=== PATIENT | female | born 1985 | race Caucasian/White ===

== ENCOUNTER 2018-12-04 05:44 | Inpatient (IN) | payer OTHER ==
[~2018-12-04] VITALS: Ht 162.6 cm; Wt 82.7 kg
[2018-12-04 05:53] VITALS: Ht 162.6 cm; Wt 82.7 kg
[2018-12-04 06:28] VITALS: BP 110/66; PULSE 82; RESP 18
--- NOTE | 2018-12-04 07:48 | HP ---
Date/Time of Note Date/Time of Note DATE: 12/04/18 TIME: 07:47 OB - History Hx of Present Free Text/Dictation @39+wks GA with variable decels and in early labor : 1 Para: 0 Care: Good Care Ultrasounds: Normal mid trimester US Obstetrical Complications: None Medical Complications: None Past Family/Social History * Past Medical, Surgical, Family and Obstetric Histories reviewed from chart. OB Admission Exam Vital Signs Vital Signs Vital Signs Date Temp Pulse Resp B/P (MAP) Pulse Ox O2 O2 Flow FiO2 Time Delivery Rate 12/04/18 98.1 82 18 110/66 98 Room Air 06:28 (81) Physical Exam Abdomen: WNL Reflexes: Normal Cervical Dilatation: 1cm Effacement: 50% Station: -1 Membranes: Intact Heart Rate: 140's Accelerations: Accelerations Present Decelerations: Variable Decelerations Varibility: Moderate Contractions on Admission: 6-10 Minutes Apart OB Assessment/Plan Reason for admission: observation Other Assessment: PMH Denies PSH Denies Plan: Expectant Management CORBIN GARCIA M.D. December 04, 2018 07:48
[2018-12-04] MEDS ORDERED: IBUPROFEN 600 MG TAB PO PRN (08:00)
[2018-12-04] MEDS ORDERED: MISOPROSTOL 200 MCG TAB PR PRN ×2 (08:00→23:30)
[2018-12-04] MEDS ORDERED: METHYLERGONOVINE 0.2 MG INJ IM PRN ×2 (08:00→23:30)
[2018-12-04] MEDS ORDERED: OXYCODONE/ACETAMINOPHEN (5/325) TAB PO PRN ×2 (08:00→23:30)
[2018-12-04] MEDS ORDERED: OXYTOCIN 30 UNITS/LR 500 ML IV PRN ×2 (08:00→23:30)
[2018-12-04] MEDS ORDERED: BUTORPHANOL 2 MG INJ IV PRN (08:00)
[2018-12-04] MEDS ORDERED: OXYTOCIN 30 UNITS/LR 500 ML IV SCH ×4 (08:00→23:15)
[2018-12-04] MEDS ORDERED: LIDOCAINE 1% (MPF) 30 ML INJ INJ PRN (08:00)
[2018-12-04] MEDS ORDERED: CARBOPROST 250 MCG INJ IM PRN ×2 (08:00→23:30)
[2018-12-04] MEDS: LACTATED RINGER'S 1,000 ML IV SCH ×5 (10:07→20:37)
[2018-12-04] MEDS ORDERED: MISOPROSTOL 50 MCG CAPSULE PO PRN (10:30)
--- NOTE | 2018-12-04 13:06 | PREAC ---
Date/Time of Note Date/Time of Note DATE: 12/04/18 TIME: 13:05 Anesthesia Eval and Record Evaluation Time Pre-Procedure Interview DATE: 12/04/18 TIME: 13:05 Age 33 Sex female NPO: 8 hrs Preoperative diagnosis labor pain Planned procedure epidural Past Medical History Past Medical History: Includes : Gestational age: (38.6) Surgery & Anesthesia Issues No known issue Meds Anticoagulation: No Beta Jose within 24 hr: No Reason Beta Jose not given: Pt. not on B-Jose Current Medications Lactated Ringer's 1,000 ml @ 125 mls/hr Q8H IV Last administered on 12/04/18at 12:50; Admin Dose 125 MLS/HR; Start 12/04/18 at 07:58 Butorphanol Tartrate (Stadol) 2 mg Q2H PRN IV .PAIN SCALE 6-10; Start 12/04/18 at 08:00 Lidocaine (Xylocaine 1% (Mpf)) 30 ml ONCE PRN INJ .EPISIOTOMY; Start 12/04/18 at 08:00 Oxytocin/Lactated Ringer's 500 ml @ 500 mls/hr ONCE POST IV ; Start 12/04/18 at 08:00 Oxytocin/Lactated Ringer's 500 ml @ 125 mls/hr POST IV ; Start 12/04/18 at 08:00 Ibuprofen (Motrin) 600 mg ONCE PRN PO .PAIN 1-5; Start 12/04/18 at 08:00 Oxycodone/ Acetaminophen (Percocet (5/ 325)) 2 tab ONCE PRN PO .PAIN 6-10; Start 12/04/18 at 08:00 Oxytocin/Lactated Ringer's 500 ml @ 0 mls/hr ONCE PRN IV .VAGINAL BLEEDING; Start 12/04/18 at 08:00 Methylergonovine Maleate (Methergine) 0.2 mg ONCE PRN IM .VAGINAL BLEEDING; Start 12/04/18 at 08:00 Carboprost Tromethamine (Hemabate) 250 mcg ONCE PRN IM .VAGINAL BLEEDING; Start 12/04/18 at 08:00 Misoprostol (Cytotec) 1,000 mcg ONCE PRN HI .VAGINAL BLEEDING; Start 12/04/18 at 08:00 Misoprostol (Cytotec 50 Mcg Capsule) 50 mcg Q4 PRN PO LABOR INDUCTION Last administered on 12/04/18at 10:31; Admin Dose 50 MCG; Start 12/04/18 at 10:30 Meds reviewed: Yes Allergies Coded Allergies: No Known Allergy (Unverified , 12/04/18) Allergies Reviewed: Yes Labs/Studies Labs Reviewed: Reviewed by anesthesiologist Result Diagram: 12/04/18 0808 Laboratory Tests 12/04/18 08:08 Blood Bank Test 12/04/18 08:08 Antibody Screen NEGATIVE Blood Type A POSITIVE Rh Immune Globulin Candidate NO test: Positive Studies: ECG (n/a), CXR (n/a) Pre-procedure Exam Last vitals Vital Signs Date Temp Pulse Resp B/P (MAP) Pulse Ox O2 O2 Flow FiO2 Time Delivery Rate 12/04/18 98.1 82 18 110/66 98 Room Air 06:28 (81) Airway: Adequate mouth opening Mallampati: Mallampati I Teeth: Normal Lung: Normal Heart: Normal ASA Physical Status ASA physical status: 2 Emergency: None Planned Anesthetic Neuraxial: Epidural Planned Pain Management Epidural Pre-operative Attestations Prior to commencing anesthesia and surgery, the patient was re-evaluated, there was verification of: *The patient's identity *The results of appropriate recent lab work and preoperative vital signs *The above evaluation not changing prior to induction *Anesthetic plan, risk benefits, alternative and complications discussed with patient/family; questions answered; patient/family understands, accepts and wishes to proceed. MAGDIEL TOLEDO MD December 04, 2018 13:06
[2018-12-04] MEDS ORDERED: DIPHENHYDRAMINE 50 MG INJ IV PRN (13:30)
[2018-12-04] MEDS ORDERED: NALOXONE (0.4 MG/ML) INJ IV PRN (13:30)
[2018-12-04] MEDS ORDERED: ONDANSETRON 4 MG INJ IV PRN (13:30)
[2018-12-04] MEDS ORDERED: FENTAnyl 2MCG/ML-ROPIV 0.2% 100 ML BAG EPI SCH (13:30)
--- NOTE | 2018-12-04 18:20 | QN ---
Documentation Comment progress note patient seen and evaluated vs stable ab gravid, nt extremity no edema no calf tenderness ve 6/80/0 fhr cat 1 toco regular a/ iup at term in labor p/ continue present management consider pitocin as needed anticipate vaginal delivery TREVOR DOWLING MD December 04, 2018 18:20
[2018-12-04] MEDS ORDERED: METHYLERGONOVINE 0.2 MG INJ ONE (20:00)
[2018-12-04] MEDS ORDERED: CEFAZOLIN 2 GM/50 ML (PMX) 50 ML IVPB SCH ×2 (22:00→23:30)
[2018-12-04] MEDS ORDERED: CITRIC ACID/NA CITRATE 30 ML CUP PO ONE (22:00)
[2018-12-04] MEDS ORDERED: CEFAZOLIN 2 GM/50 ML (PMX) 50 ML IVPB ONE (22:02)
[2018-12-04] MEDS ORDERED: CITRIC ACID/NA CITRATE 30 ML CUP ONE (22:02)
--- NOTE | 2018-12-04 22:11 | PREAC ---
Date/Time of Note Date/Time of Note DATE: 12/04/18 TIME: 22:10 Anesthesia Eval and Record Evaluation Time Pre-Procedure Interview DATE: 12/04/18 TIME: 22:10 Age 33 Sex female NPO: 8 hrs Preoperative diagnosis Tachy FHR Planned procedure c secttion Past Medical History Past Medical History: Includes : Gestational age: (38.6) Surgery & Anesthesia Issues No known issue Meds Anticoagulation: No Beta Jose within 24 hr: No Reason Beta Jose not given: Pt. not on B-Jose Current Medications Lactated Ringer's 1,000 ml @ 125 mls/hr Q8H IV Last administered on 12/04/18at 20:37; Admin Dose 125 MLS/HR; Start 12/04/18 at 07:58 Butorphanol Tartrate (Stadol) 2 mg Q2H PRN IV .PAIN SCALE 6-10; Start 12/04/18 at 08:00 Lidocaine (Xylocaine 1% (Mpf)) 30 ml ONCE PRN INJ .EPISIOTOMY; Start 12/04/18 at 08:00 Oxytocin/Lactated Ringer's 500 ml @ 500 mls/hr ONCE POST IV ; Start 12/04/18 at 08:00 Oxytocin/Lactated Ringer's 500 ml @ 125 mls/hr POST IV ; Start 12/04/18 at 08:00 Ibuprofen (Motrin) 600 mg ONCE PRN PO .PAIN 1-5; Start 12/04/18 at 08:00 Oxycodone/ Acetaminophen (Percocet (5/ 325)) 2 tab ONCE PRN PO .PAIN 6-10; Start 12/04/18 at 08:00 Oxytocin/Lactated Ringer's 500 ml @ 0 mls/hr ONCE PRN IV .VAGINAL BLEEDING; Start 12/04/18 at 08:00 Methylergonovine Maleate (Methergine) 0.2 mg ONCE PRN IM .VAGINAL BLEEDING; Start 12/04/18 at 08:00 Carboprost Tromethamine (Hemabate) 250 mcg ONCE PRN IM .VAGINAL BLEEDING; Start 12/04/18 at 08:00 Misoprostol (Cytotec) 1,000 mcg ONCE PRN AL .VAGINAL BLEEDING; Start 12/04/18 at 08:00 Misoprostol (Cytotec 50 Mcg Capsule) 50 mcg Q4 PRN PO LABOR INDUCTION Last administered on 12/04/18at 10:31; Admin Dose 50 MCG; Start 12/04/18 at 10:30 Diphenhydramine HCl (Benadryl) 25 mg Q4H PRN IV .PRURITUS; Start 12/04/18 at 13:30 Ondansetron HCl (Zofran Inj) 4 mg Q6H PRN IV .NAUSEA/VOMITING; Start 12/04/18 at 13:30 Naloxone HCl (Narcan) 0.2 mg Q2M PRN IV .RESP RATE; Start 12/04/18 at 13:30 Fentanyl/ Ropivacaine 100 ml EPIDURAL (PCEA) EPI ; Start 12/04/18 at 13:30 Oxytocin/Lactated Ringer's 500 ml @ 0 mls/hr Q0M IV ; Start 12/04/18 at 15:00 Cefazolin Sodium/ Dextrose 50 ml @ 100 mls/hr ONCE IVPB ; Start 12/04/18 at 22:00; Status UNV Citric Acid/ Sodium Citrate (Bicitra) 30 ml ONCE ONCE PO ; Start 12/04/18 at 22:00; Stop 12/04/18 at 22:01; Status UNV Meds reviewed: Yes Allergies Coded Allergies: No Known Allergy (Unverified , 12/04/18) Allergies Reviewed: Yes Labs/Studies Labs Reviewed: Reviewed by anesthesiologist Result Diagram: 12/04/18 0808 Laboratory Tests 12/04/18 08:08 Blood Bank Test 12/04/18 08:08 Antibody Screen NEGATIVE Blood Type A POSITIVE Rh Immune Globulin Candidate NO test: Positive Studies: ECG (n/a), CXR (n/a) Pre-procedure Exam Last vitals Vital Signs Date Temp Pulse Resp B/P (MAP) Pulse Ox O2 O2 Flow FiO2 Time Delivery Rate 12/04/18 98.1 82 18 110/66 98 Room Air 06:28 (81) Airway: Adequate mouth opening Mallampati: Mallampati I Teeth: Normal Lung: Normal Heart: Normal ASA Physical Status ASA physical status: 2 Emergency: E Planned Anesthetic Neuraxial: Epidural Planned Pain Management Epidural Pre-operative Attestations Prior to commencing anesthesia and surgery, the patient was re-evaluated, there was verification of: *The patient's identity *The results of appropriate recent lab work and preoperative vital signs *The above evaluation not changing prior to induction *Anesthetic plan, risk benefits, alternative and complications discussed with patient/family; questions answered; patient/family understands, accepts and wishes to proceed. MAGDIEL TOLEDO MD December 04, 2018 22:11
[2018-12-04] MEDS ORDERED: LIDOCAINE 1.5%/EPI MPF (SDV) 30 ML VIAL ONE (22:13)
--- NOTE | 2018-12-04 22:14 | HPN ---
Date/Time of Note Date/Time of Note DATE: 12/04/18 TIME: 22:13 Interval H&P Admission Note Pt. seen H&P reviewed: Systems changes noted below iup at 39 wks ga, in labor, persistent cat 2 tracing, remote from delivery TREVOR DOWLING MD December 04, 2018 22:13
[2018-12-04] MEDS ORDERED: METOCLOPRAMIDE 10 MG INJ ONE (22:19)
[2018-12-04] MEDS ORDERED: KETOROLAC 30 MG INJ ONE (22:25)
[2018-12-04] MEDS ORDERED: morphine SULFATE/PF (10 MG/10 ML) INJ ONE (22:53)
[2018-12-04] MEDS ORDERED: OXYTOCIN 30 UNITS/LR 500 ML IV ONE (22:58)
--- NOTE | 2018-12-04 23:14 | OPPN ---
Date/Time of Note Date/Time of Note DATE: 12/04/18 TIME: 23:11 Operative Report Planned Procedure Procedure date December 04, 2018 Procedure(s) primary low transverse CD Performed by see signature line Director Of Analytical Development: FRANCA LOTT 2nd Director Of Analytical Development none Anesthesiologist: MAGDIEL TOLEDO MD Pre-procedure diagnosis iup at 39 wks ga, in labor, persistent cat 2 tracing, remote from delivery [id number] Anesthesia Type: [id number] epidural Post-Procedure Post-procedure diagnosis same Findings A viable male, 8/9, weight 7lbs 10oz. loose cord around neck x 1. normal uterus, tubes and ovaries. Estimated Blood Loss: 500 - 600 mls (500) Specimen(s) none Grafts/Implant(s) none Complication(s) none TREVOR DOWLING MD December 04, 2018 23:14
[2018-12-04] MEDS ORDERED: LANOLIN HPA 1 PKT TOP PRN (23:30)
[2018-12-04] MEDS ORDERED: NACL 0.9% 3 ML SYG IV SCH (23:30)
[2018-12-05] MEDS ORDERED: IBUPROFEN 600 MG TAB PO SCH
[2018-12-05 02:05] VITALS: BP 120/72; PULSE 59; RESP 18
[2018-12-05] MEDS: LACTATED RINGER'S 1,000 ML IV SCH ×3 (05:30→19:00)
[2018-12-05] MEDS: CEFAZOLIN 2 GM/50 ML (PMX) 50 ML IVPB SCH ×3 (05:58→21:50)
[2018-12-05 06:09] VITALS: BP 109/67; PULSE 61; RESP 19
--- NOTE | 2018-12-05 07:54 | PAC ---
Date/Time of Note Date/Time of Note DATE: 12/05/18 TIME: 07:54 Post-Anesthesia Notes Post-Anesthesia Note Last documented vital signs Vital Signs Date Temp Pulse Resp B/P (MAP) Pulse Ox O2 O2 Flow FiO2 Time Delivery Rate 12/05/18 98.3 61 19 109/67 95 Room Air 06:09 (81) Activity: WNL Respiratory function: WNL Cardiovascular function: WNL Mental status: Baseline Pain reasonably controlled: Yes Hydration appropriate: Yes Nausea/Vomiting absent: No MAGDIEL TOLEDO MD December 05, 2018 07:54
--- NOTE | 2018-12-05 07:56 | OPPN ---
Date/Time of Note Date/Time of Note DATE: 12/05/18 TIME: 07:54 Anesthesia Follow up Anesthesia Follow up Last documented vital signs Vital Signs Date Temp Pulse Resp B/P (MAP) Pulse Ox O2 O2 Flow FiO2 Time Delivery Rate 12/05/18 98.3 61 19 109/67 95 Room Air 06:09 (81) Respiratory function: WNL Cardiovascular function: WNL Comments A 33 year female s/p spinal with duramorph form post op pain POD#1 is fine. No pain, headache, N/V, itching. no neural deficit. care per surgery team MAGDIEL TOLEDO MD December 05, 2018 07:56
--- NOTE | 2018-12-05 07:57 | PAC ---
Date/Time of Note Date/Time of Note DATE: 12/05/18 TIME: 07:56 Post-Anesthesia Notes Post-Anesthesia Note Last documented vital signs Vital Signs Date Temp Pulse Resp B/P (MAP) Pulse Ox O2 O2 Flow FiO2 Time Delivery Rate 12/05/18 98.3 61 19 109/67 95 Room Air 06:09 (81) Activity: WNL Respiratory function: WNL Cardiovascular function: WNL Mental status: Baseline Pain reasonably controlled: Yes Hydration appropriate: Yes Nausea/Vomiting absent: No MAGDIEL TOLEDO MD December 05, 2018 07:57
[2018-12-05 08:15] VITALS: BP 109/69; PULSE 68; RESP 17
[2018-12-05 12:00] VITALS: BP 107/67; PULSE 77; RESP 18
[2018-12-05] MEDS: KETOROLAC 30 MG INJ IV PRN ×2 (12:46→21:49)
[2018-12-05 16:09] VITALS: BP 107/68; PULSE 65; RESP 18
--- NOTE | 2018-12-05 18:11 | QN ---
Documentation Comment progress note pod 1 patient was seen and evaluated no complaints vs stable afebrile ab dressing clean/dry no distention extremity no edema no calf tenderness a/ sp cd with btl pod 1 stable afebrile p/ encourage ambulation iron supplement TREVOR DOWLING MD December 05, 2018 18:11
--- NOTE | 2018-12-05 18:47 | OPR ---
DATE OF OPERATION: 12/04/2018 PRIMARY DIAGNOSES: Intrauterine at 39 weeks gestational age in labor, persistent category 2 tracing remote from delivery. POSTOPERATIVE DIAGNOSES: Intrauterine at 39 weeks gestational age in labor, persistent cat egory 2 tracing remote from delivery. OPERATION PERFORMED: Primary low transverse delivery via Pfannenstiel incision. SURGEON: Ty Treadwell MD RUBBER TRIMMER: Javi Toussaint MD ANESTHESIA: Epidural. COMPLICATIONS: None. ESTIMATED BLOOD LOSS: 500 mL. FINDINGS: A viable male, 8 and 9 respectively at 1 and 5 minutes, weight 7 pounds and 10 ounce s, loose cord around the neck x1; normal uterus, tubes and ovaries. DESCRIPTION OF PROCEDURE: After explaining the risks, benefits and alternatives, the patient and con sent signed in chart, the patient was taken to the operating room where epidural anesthesia was found to be adequate. She was then prepared and draped in normal sterile fashion in dorsal supine positio n with a leftward tilt. A Pfannenstiel skin incision was then made with a scalpel and carried to the underlying fascia. The fascia was incised in midline. Incision was extended laterally with Martin sc issors. The superior aspect of the fascial incision was grasped with Yamil clamps, elevated and the underlying rectus muscles were dissected off bluntly. Attention was then turned to the inferior asp ect incision which in similar fashion was grasped with curved clamps, elevated and the rectus muscles were dissected off bluntly. The rectus muscle was in midline, peritoneum identified, tent ed up and entered sharply with Metzenbaum scissors. The peritoneal incision was extended superiorly with good visualization of the bladder. The bladder blade was then inserted and all lower uterine se gment was incised in transverse fashion with the scalpel. The uterine incision was extended laterall y. The bladder blade was removed and the 's head was delivered atraumatically. The nose and m outh were suctioned and cord was clamped and cut. The infant was handed off to awaiting assisted living care manager . The placenta was then removed. The uterus was extracted of all clots and debris. The uterine inc ision was repaired with 1-0 chromic in a running locked fashion. Second layer of same suture was use d for imbrication obtaining excellent hemostasis. The uterus was returned to the abdomen. The gutte rs were cleared of all clots. The peritoneum and rectus abdominis muscles were reapproximated with 3 -0 Vicryl in interrupted fashion. The fascia was reapproximated with 0 Vicryl in a running fashion. The subcutaneous tissue was reapproximated with 2-0 plain gut in a running fashion. The skin was cl osed with absorbable shoaib. The patient tolerated procedure well. All counts were correct x2. Th e patient was taken to recovery room in stable condition. Dictated By: TY LÓPEZ/ALLAN Conf#: [id number] DID#: [id number]
[2018-12-05 20:00] VITALS: BP 120/64; PULSE 78; RESP 20
[2018-12-05] MEDS: FERROUS SULFATE (EC) 325 MG TAB PO SCH (21:49)
[2018-12-06] MEDS: OXYCODONE/ACETAMINOPHEN (5/325) TAB PO PRN ×5 (01:37→23:53)
[2018-12-06] MEDS: LACTATED RINGER'S 1,000 ML IV SCH (03:00)
[2018-12-06 04:42] VITALS: BP 107/62; PULSE 70; RESP 20
[2018-12-06 08:00] VITALS: BP 114/72; PULSE 67; RESP 18
[2018-12-06] MEDS: FERROUS SULFATE (EC) 325 MG TAB PO SCH ×2 (09:25→21:40)
[2018-12-06 15:40] VITALS: BP 92/57; PULSE 77; RESP 18
--- NOTE | 2018-12-06 17:14 | PD.PPDC ---
ADMINISTRATIVE PROCESSOR Discharge Instruction Condition [id number] Patient Condition: [id number] Good Diet Ievca5Zv Diet: Hlooe5v Resume Regular Diet Activity/Restrictions Sfgfx5Wx Activity: Ihpjl7r Normal Activity May Shower Cebjz4Lj Restrictions: Fhyxm2y No Exercising No Lifting No Driving No Sexual Activity Nothing in the Vagina No [place] No Tampons, douche Wound/Drain Care Instructions [id number] Wound/Drain Care Instructions: Krman3i Wash with soap and water Keep clean and dry Follow-up Follow-up with Physician: 2, Week/Weeks Return to clinic for Edqvs9Ov FORENSIC PSYCHOLOGIST Instructions: Gxuww1f Fever greater than 101 Chills Worsening abdominal pain Excessive Vaginal Bleeding More than 2 pads per hour Unable to tolerate diet Tzwsu2Az OB Instructions: Ewtzy1m Breast Tenderness Depression Blurried Vision Headache Zuodk8Ht Surgical Instructions: Gomyw5r Incisional Drainage Incisional Redness TREVOR DOWLING MD December 06, 2018 17:14
--- NOTE | 2018-12-06 17:16 | QN ---
Documentation Comment progress note pod 2 patient was seen and evaluated no complaints vs stable afebrile ab dressing clean/dry no distention extremity no edema no calf tenderness a/ sp cd with btl pod 2 stable afebrile p/ encourage ambulation iron supplement dc tomorrow TREVOR DOWLING MD December 06, 2018 17:16
[2018-12-06 21:00] VITALS: BP 116/63; PULSE 87; RESP 20
[2018-12-07 04:07] VITALS: BP 105/56; PULSE 86; RESP 18
--- NOTE | 2018-12-07 07:40 | DS ---
DATE OF ADMISSION: 12/04/2018 DATE OF DISCHARGE: 12/06/2018 PRIMARY DIAGNOSIS: Intrauterine at 39 weeks gestational age in labor, persistent category 2 tracing, remote from delivery. PROCEDURE: Primary low transverse delivery. CONDITION ON DISCHARGE: Stable. ACTIVITY: None per vagina, no lifting x6 weeks. DIET: Regular. MEDICATIONS ON DISCHARGE: 1. Motrin. 2. Iron. 3. Colace. DISCHARGE SUMMARY: Ms. Breanne Polo underwent a primary low transverse delivery on 2018. She had a viable male, 8 and 9 respectively at 1 and 5 minutes, weight 7 pounds 10 ounce s. She had an uneventful postop day 1, 2, and 3. She was discharged on postop day 3. Her incision is clean, dry, and intact. She is ambulating, tolerating diet, positive bowel movement. She will fo llow up in the clinic in 2 weeks for /postop care. Dictated By: TREVOR LÓPEZ/ALLAN Conf#: [id number] DID#: [id number]
[2018-12-07 08:00] VITALS: BP 106/62; PULSE 85; RESP 18
[2018-12-07] MEDS: IBUPROFEN 600 MG TAB PO SCH ×2 (08:49→12:00)
[2018-12-07] MEDS: FERROUS SULFATE (EC) 325 MG TAB PO SCH (08:49)
--- NOTE | 2018-12-08 16:13 | DELSUM ---
Delivery Summary A-C Datetime Report Generated by CPN: 12/08/2018 16:13 DELIVERY PERSONNEL Chicken Cleaner: Guerline Amador MATERNAL INFORMATION Delivery Anesthesia: Epidural Medications in Delivery: SEE ANESTHESIA RECORD Delivery QBL (ml): 500 Placenta Cultured: No Maternal Complications: None LABOR SUMMARY EDC: 12/06/2018 00:00 No. Babies in Womb: 1 Attempted: No Labor Anesthesia: Epidural LABOR INFORMATION Reason for Induction: Indicated by Test Onset of Labor: 12/04/2018 16:30 Cervical Ripening Agents: Cytotec @ Oxytocin: N/A Group B Beta Strep: Negative Antibiotics # of Doses: X1 ANCEF 2G Antibiotics Time of Last Dose: 12/04/2018 22:22 Steroids Given: None Reason Steroids Not Administered: Not Applicable MEMBRANES Membranes Rupture Method: Spontaneous Rupture of Membranes: 12/04/2018 16:30 Length of Rupture (hr): 6.23 Amniotic Fluid Color: Clear Amniotic Fluid Amount: Scant Amniotic Fluid Odor: None STAGES OF LABOR Stage 3 hr: 0 Stage 3 min: 2 Total Time in Labor hr: 6 Total Time in Labor min: 16 VAGINAL DELIVERY Initial Vag Sponge Count: 10 Initial Vag Sharps Count: 1 CSECTION DELIVERY Primary Indication: Nonreassuring Stat Secondary Indication: N/A CSection Urgency: Emergency CSection Incidence: Primary Labor: Labor Elective: Nonelective CSection Incision: Lower Uterine Transverse BABY A INFORMATION Infant Delivery Date/Time: 12/04/2018 22:44 Method of Delivery: Born in Route : No : N/A Forceps: N/A Vacuum Extraction: N/A Shoulder Dystocia : N/A SHOULDER DYSTOCIA BABY A Delivery Date/Time: 12/04/2018 22:44 PRESENTATION/POSITION BABY A Presentation: Cephalic Cephalic Presentation: Vertex Vertex Position: Left Occipital Posterior Breech Presentation: N/A PLACENTA INFORMATION BABY A Placenta Delivery Time : 12/04/2018 22:46 Placenta Method of Delivery: Expressed Placenta Status: Delivered SCORES BABY A Heart Rate 1 min: >100 bpm Resp Effort 1 min: Good Cry Reflex Irritability 1 min: Cough/Sneeze/Pulls Away Muscle Tone 1 min: Active Motion Color 1 min: Blue/Pale Resuscitation Effort 1 min: Tactile Stimulation; Oxygen SCORE 1 MIN: 8 Heart Rate 5 min: >100 bpm Resp Effort 5 min: Good Cry Reflex Irritability 5 min: Cough/Sneeze/Pulls Away Muscle Tone 5 min: Active Motion Color 5 min: Body Sabin, Extremit Blue Resuscitation Effort 5 min: Tactile Stimulation SCORE 5 MIN: 9 INFORMATION BABY A Gestational Age at Delivery: 39.5 Gestational Status: Full Term- 39- 40.6 Weeks Infant Outcome : Liveborn Condition : Stable Infant Sex: Male IDENTIFICATION/MEDS BABY A ID Band Number: [id number] ID Band Location: Right Leg; Left Arm Sensor Applied: Yes Sensor Number: [id number] Sensor Location : Cord Clamp Vitamin K Given : Not Given Erythromycin Given: Not Given WEIGHT/LENGTH BABY A Birthweight (gm): 3465 Infant Weight (lb): 7 Infant Weight (oz): 10 Length (in): 20.50 Infant Length (cm): 52.07 CORD INFORMATION BABY A No. Cord Vessels: 3 Nuchal Cord : Around Neck x1, Loose Cord Blood Taken: Yes Suction: Mouth; Nose ASSESSMENT BABY A Complications: Extended Tachycardi; Multiple Late Decels Physical Findings at Delivery: Caput Succedaneum Infant Respirations: Appears Normal Soft Boarder/ALS Called : Yes Infant Care By: BRIA/SHAH Transferred To: Remains with Mother
== END 2018-12-07 16:13 | disposition home or self-care (01) | DRG 788 ==
LOC: EDSEX → OBT 05:44 → L-D 05:44 → OBT 07:32 → L-D 22:19 → PP1 12-05 01:52 → MERGE 12-05 15:40
PROVIDERS: ADMIT Obstetrics & Gynecology; ATTEND Obstetrics & Gynecology
PROC: 10D00Z1 Extraction of Products of Conception, Low, Open Approach (ICD-10-PCS; principal; 2018-12-04)
DX: O76 Abnormality in fetal heart rate and rhythm complicating labor and delivery (principal); O69.81X0 Labor and delivery complicated by cord around neck, without compression, not applicable or unspecified; Z37.0 Single live birth; Z3A.39 39 weeks gestation of pregnancy
CPT/HCPCS: 62322; 76815; 76818; 81001; 85025; 85610; 85730; 86592; 86850; 86900; 86901; 87086; 87340; 99464; G0463; J0690; J1885; J2210; J2274; J2405; J2590; J2765; J3010; J7120